=== PATIENT | female | born 1935 | race Caucasian/White ===

== ENCOUNTER 2017-07-13 15:28 | Emergency (ER) | payer MEDICARE, BC ==
[~2017-07-13] VITALS: Ht 157.5 cm; Wt 84.0 kg
[2017-07-13 15:32] VITALS: BP 176/107; PULSE 94; RESP 16; TEMP 96; O2SAT 98
[2017-07-13] MEDS ORDERED: TOPR50TA PO (15:41)
[2017-07-13] MEDS ORDERED: APIX5TAB PO (15:41)
[2017-07-13] MEDS ORDERED: METF500T PO (15:41)
[2017-07-13] MEDS ORDERED: LEVO25TA4 PO (15:41)
[2017-07-13] MEDS ORDERED: LANTUS2P SQ (15:41)
--- NOTE | 2017-07-13 16:06 | PD ---
HPI Chief Complaint: Foreign Body Time Seen by Provider: 15:37 Travel History International Travel<30 days: No Contact w/Intl Traveler<30days: No Traveled to known affect area: No History of Present Illness HPI PATIENT HAD A TAMPON FOR URINARY LEAK PLACED AND CAN'T FIND THE STRING OF IT AND IS AFRAID THAT IT MAY BE STUCK IN HER VAGINA....PT DENIES ANY BLEEDING, ABDOMINAL PAIN, VAGINAL VAULT PAIN, NOR ANY N/V/D/URI/COUGH/ PFSH Past Medical History Hx Anticoagulant Therapy: Yes Atrial Fibrillation: Yes Diabetes: Yes (Insulin) Patient Takes Glucophage: Yes Hypertension: Yes Thyroid Disease: Yes Past Surgical History Hysterectomy: Yes Social History Alcohol Use: No Tobacco Use: No Substance Use: No Allergies-Medications (Allergen,Severity, Reaction): Coded Allergies: No Known Allergies (Verified Allergy, Unknown, 07/13/17) Reported Meds & Prescriptions Reported Meds & Active Scripts Active Reported Metformin (Metformin HCl) 500 Mg Tab 500 Mg PO BIDPC Toprol XL (Metoprolol Succinate) 50 Mg Tab 50 Mg PO DAILY Levothyroxine (Levothyroxine Sodium) 25 Mcg Tab 37 Mcg PO DAILY Lantus Inj (Insulin Glargine) 1,000 Unit/10 Ml Vial 50 Units SQ BID Eliquis (Apixaban) 5 Mg Tab 5 Mg PO BID Review of Systems Except as stated in HPI: all other systems reviewed are Neg Genitourinary: Positive: Other (POSSIBLE VAGINAL FB) Physical Exam Narrative GENERAL: SKIN: Warm and dry. HEAD: Atraumatic. Normocephalic. EYES: Pupils equal and round. No scleral icterus. No injection or drainage. ENT: No nasal bleeding or discharge. Mucous membranes pink and moist. NECK: Trachea midline. No JVD. CARDIOVASCULAR: Regular rate and rhythm. RESPIRATORY: No accessory muscle use. Clear to auscultation. Breath sounds equal bilaterally. GASTROINTESTINAL: Abdomen soft, non-tender, nondistended. [employer] WITH LAETHA PORRAS AT BEDSIDE: NO FB NOTED IN VAGINAL VAULT MUSCULOSKELETAL: Extremities without clubbing, cyanosis, or edema. No obvious deformities. NEUROLOGICAL: Awake and alert. No obvious cranial nerve deficits. Motor grossly within normal limits. Five out of 5 muscle strength in the arms and legs. Normal speech. PSYCHIATRIC: Appropriate mood and affect; insight and judgment normal. Data Data Last Documented VS Vital Signs Date Time Temp Pulse Resp B/P (MAP) Pulse Ox O2 Delivery O2 Flow Rate FiO2 07/13/17 15:32 96.0 94 16 176/107 (130) 98 MDM Medical Decision Making Medical Screen Exam Complete: Yes Emergency Medical Condition: Yes Medical Record Reviewed: Yes Differential Diagnosis VAGINAL FB Narrative Course AFTER EXAMINATION NO VAGINAL FB NOTED THAT REQUIRED REMOVAL Diagnosis Primary Impression: NO VAGINAL FOREIGN BODY Patient Instructions: General Instructions Disposition: 01 DISCHARGE HOME Condition: Stable Jesus Kramer MD Jul 13, 2017 16:06
== END 2017-07-13 16:46 | disposition home or self-care (01) ==
LOC: PHED 15:28
DX: Z03.89 Encounter for observation for other suspected diseases and conditions ruled out (principal); E11.9 Type 2 diabetes mellitus without complications; I10 Essential (primary) hypertension; I48.91 Unspecified atrial fibrillation; Z79.01 Long term (current) use of anticoagulants; Z79.4 Long term (current) use of insulin; Z79.84 Long term (current) use of oral hypoglycemic drugs
CPT/HCPCS: 99284